=== PATIENT | female | born 2000 | race Caucasian/White ===

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

== ENCOUNTER 2021-03-23 15:00 | Outpatient (REF) | payer BC, SELFPAY ==
[2021-03-24 14:13] LABS: Chlamydia Result Negative (Negative); GC Result Negative (Negative)
== END 2021-03-23 15:01 | disposition home or self-care (01) ==
LOC: LBN 15:00
PROVIDERS: PCP Nurse Practitioner Family; Visit Provider Nurse Practitioner Family
DX: Z11.3 Encounter for screening for infections with a predominantly sexual mode of transmission (principal)
CPT/HCPCS: 87491; 87591

== ENCOUNTER 2021-12-07 19:06 | Outpatient (REF) | payer BC, SELFPAY | END 2021-12-07 19:07 | disposition home or self-care (01) | LOC: LBN 19:06 | PROVIDERS: PCP Nurse Practitioner Family; Visit Provider Nurse Practitioner Women's Health | DX: R30.0 Dysuria (principal) | CPT/HCPCS: 87077; 87086; 87186 ==

== ENCOUNTER 2022-10-18 17:53 | Outpatient (REF) | payer BC, SELFPAY | END 2022-10-18 17:54 | disposition home or self-care (01) | LOC: LBN 17:53 | PROVIDERS: PCP Nurse Practitioner Family; Visit Provider Nurse Practitioner Women's Health | DX: N76.0 Acute vaginitis (principal) | CPT/HCPCS: 87480; 87510; 87660 ==

== ENCOUNTER 2022-12-21 11:38 | Outpatient (REF) | payer BC, SELFPAY | END 2022-12-21 11:39 | disposition home or self-care (01) | LOC: LBN 11:38 | PROVIDERS: PCP Nurse Practitioner Family; Visit Provider Nurse Practitioner Women's Health | DX: N89.8 Other specified noninflammatory disorders of vagina | CPT/HCPCS: 87480; 87510; 87660 ==

== ENCOUNTER 2023-02-21 15:15 | Outpatient (REF) | payer BC, SELFPAY | END 2023-02-21 15:16 | disposition home or self-care (01) | LOC: LBN 15:15 | PROVIDERS: PCP Nurse Practitioner Family; Visit Provider Nurse Practitioner Women's Health | DX: N76.0 Acute vaginitis (principal) | CPT/HCPCS: 87480; 87510; 87660 ==

== ENCOUNTER 2023-03-28 03:19 | Outpatient (CLI) | payer BC, SELFPAY ==
[2023-03-28 08:47] LABS: Hemoglobin A1C 4.6 % (<5.7)
[2023-03-28 09:09] LABS: Anion Gap 8.4 mmol/L (3-11); BUN 12 mg/dL (7-18); CO2 26.6 mmol/L (21.0-32.0); CREATININE 0.7 mg/dL (0.55-1.02); Calcium 9.1 mg/dL (8.5-10.1); Calculated LDL 88 mg/dL (<100); Chloride 105 mmol/L (98-107); Cholesterol 153 mg/dL (<200); Estimated GFR 126.11 (mL/min/1.73m2); Glucose 91 mg/dL (74-106); HDL Cholesterol 50 mg/dL (40-60); Sodium 140 mmol/L (136-145); Triglyceride 79 mg/dL (<150)
== END 2023-03-28 03:20 | disposition home or self-care (01) ==
LOC: LBO 03:19
PROVIDERS: PCP Nurse Practitioner Family; Visit Provider Nurse Practitioner Family
DX: Z00.00 Encounter for general adult medical examination without abnormal findings (principal); Z13.220 Encounter for screening for lipoid disorders; Z13.29 Encounter for screening for other suspected endocrine disorder; Z13.1 Encounter for screening for diabetes mellitus; Z13.228 Encounter for screening for other metabolic disorders
CPT/HCPCS: 36415; 80048; 80061; 83036; 84443

== ENCOUNTER 2023-07-26 11:13 | Outpatient (REF) | payer BC, SELFPAY ==
--- NOTE | 2023-07-26 10:00 | PAPFT_PTH ---
PATIENT: Lorraine Urbano LOC: [facility] U#:[id number] AGE/SX: 22/F ROOM: RE07/26/[address]: Guera Vicente : 2000 BED: DIS: 07/26/2023 SPEC #: [id number] RECD: 07/26/23 12:56 STATUS: BE REQ #: [id number] PB: 07/26/23 10:[address]: Guera Vicente DEPT: [facility] Cytology RECD BY: Dominique Aguilar ENTERED: 07/26/23 12:57 SP TYPE: PAPFT OTHR DR: MEDARDO Dobbs Tissues: 1 - CX/ENDOCX FOR PAP SMEARS Procedures: PAP THIN PREP/[facility] Screening Comments: [id number]
[2023-07-27 13:34] LABS: Chlamydia Result Negative (Negative); GC Result Negative (Negative)
== END 2023-07-26 11:14 | disposition home or self-care (01) ==
LOC: LBN 11:13
PROVIDERS: PCP Nurse Practitioner Family; Visit Provider Advanced Practice Midwife
DX: N89.8 Other specified noninflammatory disorders of vagina (principal); Z01.419 Encounter for gynecological examination (general) (routine) without abnormal findings; Z12.4 Encounter for screening for malignant neoplasm of cervix; Z11.3 Encounter for screening for infections with a predominantly sexual mode of transmission
CPT/HCPCS: 87491; 87591; 88142; 87480; 87510; 87660

== ENCOUNTER 2023-09-04 16:19 | Outpatient (REF) | payer BC, SELFPAY | END 2023-09-04 16:20 | disposition home or self-care (01) | LOC: LBN 16:19 | PROVIDERS: PCP Nurse Practitioner Family; Visit Provider Advanced Practice Midwife | DX: N89.8 Other specified noninflammatory disorders of vagina (principal) | CPT/HCPCS: 87480; 87510; 87660 ==

== ENCOUNTER 2023-10-30 15:46 | Outpatient (REF) | payer BC, SELFPAY | END 2023-10-30 15:47 | disposition home or self-care (01) | LOC: NCHCN 15:46 | PROVIDERS: PCP Family Medicine; Visit Provider Advanced Practice Midwife | DX: R35.0 Frequency of micturition (principal) | CPT/HCPCS: 87086 ==

== ENCOUNTER 2024-08-27 15:31 | Outpatient (REF) | payer BC, SELFPAY ==
[2024-08-29 14:31] LABS: HSV 1 DNA Result Negative (Negative); HSV 2 DNA Result Negative (Negative)
== END 2024-08-27 15:32 | disposition home or self-care (01) ==
LOC: LBN 15:31
PROVIDERS: PCP Nurse Practitioner Family; Visit Provider Nurse Practitioner Women's Health
DX: N90.89 Other specified noninflammatory disorders of vulva and perineum (principal); Z01.419 Encounter for gynecological examination (general) (routine) without abnormal findings; Z30.431 Encounter for routine checking of intrauterine contraceptive device
CPT/HCPCS: 87529

== ENCOUNTER 2025-09-15 15:46 | Outpatient (REF) | payer OTHER, SELFPAY | END 2025-09-15 15:47 | disposition home or self-care (01) | LOC: LBN 15:46 | PROVIDERS: PCP Nurse Practitioner Family; Visit Provider Nurse Practitioner Women's Health | DX: N76.0 Acute vaginitis (principal) | CPT/HCPCS: 87480; 87510; 87660 ==